=== PATIENT | female | born 1985 | race Native Hawaiian/Other Pacific Islander ===

== ENCOUNTER 2018-02-21 05:59 | Emergency (ER) | payer OTHER, BC ==
[2018-02-21 06:53] VITALS: BMI 24.7
--- NOTE | 2018-02-21 07:20 | ED PDOC ---
HPI: CCC, URI, Sore Throat Time Seen by Provider: 02/21/18 07:03 Chief Complaint (Nursing): ENT Problem Chief Complaint (Provider): ENT Problem History Per: Patient History/Exam Limitations: no limitations Onset/Duration Of Symptoms: Days (x 1) Associated Symptoms: Sore Throat. denies: Fever, Cough Additional Complaint(s): Tobin Shirley is a 32 years old female presents to the ED with complaints of sore throat associated with earache and difficulty swallowing onset last night. Patient denies any cough, fever, or shortness of breath. PMD: [place] Past Medical History Reviewed: Historical Data, Nursing Documentation, Vital Signs Vital Signs: Last Vital Signs Temp 98.3 F 02/21/18 06:54 Pulse 89 02/21/18 06:54 Resp 18 02/21/18 06:54 BP 105/71 02/21/18 06:54 Pulse Ox 100 02/21/18 07:29 - Medical History PMH: No Chronic Diseases - Surgical History Surgical History: No Surg Hx - Family History Family History: States: Unknown Family Hx - Home Medications Home Medications: Ambulatory Orders Medication Instructions Recorded Azithromycin [Zithromax] 250 mg PO DAILY #6 tab 02/21/18 - Allergies Allergies/Adverse Reactions: Allergies Allergy/AdvReac Type Severity Reaction Status Date / Time No Known Allergies Allergy Verified 02/21/18 06:53 Review of Systems ROS Statement: Except As Marked, All Systems Reviewed And Found Negative Constitutional: Positive for: Fever. Negative for: Chills ENT: Positive for: Ear Pain, Throat Pain Respiratory: Negative for: Cough, Shortness of Breath Physical Exam - Reviewed Nursing Documentation Reviewed: Yes Vital Signs Reviewed: Yes - Physical Exam Appears: Positive for: Non-toxic, No Acute Distress Head Exam: Positive for: ATRAUMATIC, NORMOCEPHALIC Skin: Positive for: Normal Color, Warm, Dry ENT: Positive for: Pharyngeal Erythema (mild). Negative for: Tonsillar Exudate , Tonsillar Swelling, Other (Abscess) Cardiovascular/Chest: Positive for: Regular Rate, Rhythm. Negative for: Murmur Respiratory: Positive for: Normal Breath Sounds (Bilaterally). Negative for: Respiratory Distress Neurologic/Psych: Positive for: Alert, Oriented - ECG O2 Sat by Pulse Oximetry: 100 (RA) Pulse Ox Interpretation: Normal Medical Decision Making Medical Decision Making: Time: 718 Initial Plan: --Rapid Strep [facility] A Antigen Scribe Attestation: Documented by Gracie Yu, acting as a scribe for Sergio Aviles MD Provider Scribe Attestation: All medical record entries made by the Scribe were at my direction and personally dictated by me. I have reviewed the chart and agree that the record accurately reflects my personal performance of the history, physical exam, medical decision making, and the department course for this patient. I have also personally directed, reviewed, and agree with the discharge instructions and disposition. Disposition - Clinical Impression Clinical Impression: Pharyngitis - Disposition Referrals: [facility] [Outside] Disposition Time: 07:32 Condition: FAIR Prescriptions: Azithromycin [Zithromax] 250 mg PO DAILY #6 tab Instructions: Sore Throat in Adults Forms: [employer] ([place])
[2018-02-21 07:57] VITALS: BP 120/70; PULSE 78; RESP 20; TEMP 98; O2SAT 98
== END 2018-02-21 08:10 | disposition short-term general hospital (02) ==
LOC: H.ER 05:59
DX: J02.9 Acute pharyngitis, unspecified (principal); H92.09 Otalgia, unspecified ear